=== PATIENT | female | born 1965 | race Caucasian/White ===

== ENCOUNTER 2022-12-07 07:56 | Emergency (ER) | payer BC, MEDICAID ==
[~2022-12-07] VITALS: Ht 177.8 cm; Wt 63.7 kg
[2022-12-07] MEDS ORDERED: ASPirin 325 MG TAB PO ONE (08:00)
[2022-12-07 08:32] LABS: Basophils # (auto) 0.1 10 ^3/uL (0-0.2); Basophils % (auto) 1.2 % (0.0-2.0); Eosinophils # (auto) 0.1 10 ^3/uL (0-0.8); Eosinophils % (auto) 1.3 % (0.0-7.0); Hematocrit 44.2 % (36.0-46.0); Hemoglobin 15.4 g/dL (12.2-16.2); Lymphocytes # (auto) 1.4 10 ^3/uL (0.4-5.4); Lymphocytes % (auto) 23.5 % (10.0-50.0); Mean Corpuscular Hemoglobin 33.5 pg (28.0-32.0); Mean Corpuscular Hgb Conc. 34.8 g/dL (32.0-36.0); Mean Corpuscular Volume 96.4 fL (80.0-100.0); Monocytes # (auto) 0.3 10 ^3/uL (0-1.3); Monocytes % (auto) 5.2 % (0.0-12.0); Neutrophils # (auto) 4.2 10 ^3/uL (1.6-8.6); Neutrophils % (auto) 68.8 % (37.0-80.0); Nucleated Red Blood Cells % 0.2 %; Red Blood Cells 4.58 10^6/uL (4.0-5.20); White Blood Cell 6.2 10^3/uL (4.4-10.8)
[2022-12-07 08:38] LABS: INR 1.08 (0.9-1.15); Partial Thromboplastin Time 28.2 sec (24.6-33.4)
[2022-12-07 09:08] LABS: Albumin 4.4 g/dL (3.4-5.0); Calcium 9.9 mg/dL (8.5-10.1); Potassium 3.5 mmol/L (3.5-5.1)
[2022-12-07 09:11] LABS: Urine Bacteria NONE SEEN /hpf (None Seen); Urine Blood Negative /uL (Negative); Urine Mucus FEW (None Seen); Urine Specific Gravity 1.024 (1.001-1.035); Urine WBC 104 /hpf (0 - 5); Urine WBC Clumps PRESENT /hpf (None Seen)
[2022-12-07 09:16] LABS: BUN/Creatinine Ratio 16.2 (10.0-20.0); Bilirubin, Total 1.3 mg/dL (0.2-1.0); Total Protein 8.7 g/dL (6.4-8.2)
[2022-12-07] MEDS ORDERED: LISI-716 PO (09:19)
[2022-12-07] MEDS ORDERED: cloNIDine HCL 0.1 MG TAB PO ONE (09:30)
[2022-12-07 09:43] LABS: Barbiturate Scree,Urine NEGATIVE (NEGATIVE); Benzodiazephine Screen, Urine NEGATIVE (NEGATIVE); Cannabinoid Screen, Urine POSITIVE (NEGATIVE); Cocaine Screen, Urine NEGATIVE (NEGATIVE)
[2022-12-07 09:50] LABS: Amphetamine Screen, Urine NEGATIVE (NEGATIVE); Opiate Scree,Urine NEGATIVE (NEGATIVE); Phencyclidine Screen, Urine NEGATIVE (NEGATIVE)
[2022-12-07] MEDS ORDERED: NITR-87 PO (11:22)
[2022-12-07 12:27] VITALS: BP 161/74
== END 2022-12-07 12:34 | disposition home or self-care (01) ==
LOC: ER 07:56
DX: I10 Essential (primary) hypertension (principal); N39.0 Urinary tract infection, site not specified
CPT/HCPCS: 36415; 71045; 80053; 80307; 81001; 83735; 84484; 85025; 85379; 85610; 85730; 93005

== ENCOUNTER 2024-01-10 04:44 | Emergency (ER) | payer OTHER ==
[~2024-01-10] VITALS: Ht 177.8 cm; Wt 62.6 kg
[~2024-01-10 04:44] MED LIST: LISI10TA34 PO; NITR-87 PO
[2024-01-10 05:00] VITALS: BP 116/86; PULSE 90; RESP 16; TEMP 98.1; O2SAT 99
[2024-01-10] MEDS ORDERED: IBUP-1456 PO (06:40)
[2024-01-10] MEDS: HYDROcodone-ACET 5/325MG TAB PO ONE (06:49)
== END 2024-01-10 06:51 | disposition home or self-care (01) ==
LOC: ER 04:44
DX: S52.592A Other fractures of lower end of left radius, initial encounter for closed fracture (principal); I10 Essential (primary) hypertension; I48.91 Unspecified atrial fibrillation; Z79.1 Long term (current) use of non-steroidal anti-inflammatories (NSAID); Z79.899 Other long term (current) drug therapy; W23.0XXA Caught, crushed, jammed, or pinched between moving objects, initial encounter; Y93.89 Activity, other specified; Y92.89 Other specified places as the place of occurrence of the external cause; Y99.8 Other external cause status
CPT/HCPCS: 29125; 73110